=== PATIENT | female | born 1960 | race Hispanic/Latino ===

== ENCOUNTER 2022-12-03 10:43 | Emergency (ER) | payer OTHER, SELFPAY ==
--- NOTE | ~2022-12-03 | CT_ITS ---
EXAMINATION: CT abdomen pelvis wo con DATE: 12/03/2022 13:09 INDICATION: Right flank pain. TECHNIQUE: Computed tomography (CT) of the abdomen and pelvis was performed without intravenous contr ast. Automated exposure control and iterative reconstruction technique were employed. The dose-length product was 439.88 mGy-cm. COMPARISON: None. FINDINGS: The visualized portions of the lung bases are clear without pneumonia or pleural effusion. The heart size is normal. No pericardial effusion. There is diffuse hepatic steatosis. There are white ges of cholecystectomy. Pneumobilia is noted, likely secondary to sphincterotomy. The gallbladder. Th e spleen, pancreas, adrenal glands, and kidneys are normal. There are no dilated loops of bowel. The appendix is normal. There is an 11 mm mass with central calcification and adjacent fat stranding in t he greater omentum on the right. There is 3.2 x 2.1 x 1.4 cm soft tissue mass with central calcificat ion posterior to the liver. There is a 10 mm mass with adjacent fat stranding in the greater omentum on the left. There is mild lumbar spondylosis. IMPRESSION: 1. Mass with central calcification posterior to the liver, most likely a dropped gallstone and inflam mation/scarring. 2. Small masses in the greater omentum, which may be fat necrosis, dropped gallstones, or less likely peritoneal carcinomatosis. 3. Diffuse hepatic steatosis. Reviewed, dictated and finalized at location A. BLASTER IMPRESSION: 1. Mass with central calcification posterior to the liver, most likely a droppe d gallstone and inflammation/scarring. 2. Small masses in the greater omentum, which may be fat necrosis, dropped gall stones, or less likely peritoneal carcinomatosis. 3. Diffuse hepatic steatosis.
[2022-12-03 10:46] VITALS: BP 133/64; PULSE 88; RESP 14; TEMP 36.7; O2SAT 99
[2022-12-03] MEDS: HYDROcodone/acetaminophen (*CRX) 5-325 MG TABLET 1 TAB PO (13:02)
--- NOTE | 2022-12-03 13:04 | ED.GENADULT ---
HPI - General Adult General Chief complaint: Back Pain/Injury Stated complaint: back pain Time Seen by Provider: 12/03/22 11:25 History of Present Illness HPI narrative: 61-year-old [place]ian-speaking female presenting to the emergency department for evaluation of right back and right flank pain. Patient states yesterday she was getting out of bed when she injured her right back. Patient did take ibuprofen for pain control and states this has been helping. Patient denies any chest pain or shortness of breath. Patient denies any abdominal pain. Patient denies any hematuria. Patient denies any associate numbness or weakness. Patient denies any pain rating down her lower legs. Patient is primarily [place]ian-speaking. Family member offered to translate but the accounts adjustable clerk iPad was utilized. Related Data Home Medications Medication Instructions Recorded Confirmed alendronate 70 mg tablet mg PO 12/03/22 12/03/22 calcium carbonate 500 mg calcium mg 12/03/22 (1,250 mg) tablet cholecalciferol (vitamin D3) 25 12/03/22 mcg (1,000 unit) tablet rosuvastatin 40 mg tablet mg 12/03/22 Allergies Allergy/AdvReac Type Severity Reaction Status Date / Time No Known Allergies Allergy Verified 12/03/22 11:35 Review of Systems Review of Systems: CONSTITUTIONAL: Denies fever, chills, or sweats. EYES: Denies visual changes, redness, or discharge. ENT: Denies rhinorrhea, congestion, sore throat, or otalgia. CARDIOVASCULAR: Denies chest pain, palpitations, or edema. RESPIRATORY: Denies cough or dyspnea. GASTROINTESTINAL: Denies abdominal pain, nausea, vomiting, or diarrhea. GENITOURINARY: Denies dysuria or hematuria. SKIN: Denies rash or itching. MUSCULOSKELETAL: See HPI NEUROLOGIC: Denies headache, numbness, or weakness. Exam Narrative: APPEARANCE: Well appearing, no pain, no distress, well-nourished. HEAD: normocephalic, atraumatic. EYES: PERRLA/EOMI, conjunctivae clear. NOSE: Normal no drainage NECK: Supple. No adenopathy, no masses. RESPIRATORY: Airway patent, respirations nonlabored. Clear to auscultation bilaterally, no rales, rhonchi, wheezing. CARDIOVASCULAR: Regular rate and rhythm without murmurs rubs or gallops. ABDOMINAL: Soft, nontender, nondistended, normal bowel sounds MUSCULOSKELETAL: Moves all extremities. Reproducible right CVA tenderness to palpation. NEURO: Alert. Cranial nerves II through XII intact. Grossly intact SKIN: Warm, dry. Normal Color Course Course Emergency Course: 61-year-old female with right flank pain. Patient was provided medications for pain control including p.o. Wins[place] and Flexeril. UA is pending. Patient was having significant right CVA tenderness. Difficult to assess if patient was having any abdominal tenderness to palpation as this was causing back pain. Patient CT showed evidence of dropped gallstones. Patient is afebrile with no leukocytosis. Patient does not have an elevated lactic acid, normal transaminases and T. bili. UA shows no evidence of infection. Case was discussed with Dr. Puente for surgery and he felt that the findings of the gallstones were most likely incidental findings 5:12 PM on repeat exam patient does have reproducible back pain but no reproducible abdominal pain. Patient and son were updated on the results of the labs and imaging. All questions and concerns were addressed. Patient will be treated as musculoskeletal back pain. Patient was provided Flexeril for pain control along with some narcotic pain medication. Patient will also be encouraged to take ibuprofen for additional pain control. Vital Signs Vital signs: Vital Signs Temperature 98.0 F 12/03/22 10:46 Pulse Rate 88 12/03/22 10:46 Respiratory Rate 14 12/03/22 10:46 Blood Pressure 133/64 12/03/22 10:46 Pulse Oximetry 99 12/03/22 10:46 Temperature 97.7 F 12/03/22 17:20 Pulse Rate 73 12/03/22 17:20 Respiratory Rate 16 12/03/22 17:20 Blood Pressure 109/58 L
[2022-12-03] MEDS: CYCLOBENZAPRINE HCL 10 MG TABLET PO (13:25)
[2022-12-03 14:22] LABS: Basophils Percent Auto 0.5 % (0.2-1.2); Eosinophils Absolute Auto 0.2 K/mm3 (0-0.3); Eosinophils Percent Auto 2.9 % (0-4.4); Hematocrit 37.5 % (37.0-47.0); Hemoglobin 12.3 g/dL (12.0-15.0); Immature Granulocyte Absolute 0.02 K/mm3 (0.00-0.031); Immature Granulocyte Percent A 0.3 % (0-0.5); Lymphocytes Absolute Auto 1.98 K/mm3 (0.9-3.2); Lymphocytes Percent Auto 24.9 % (18.3-44.2); Mean Corpuscular HGB Conc 32.8 g/dl (32-36); Mean Corpuscular Hemoglobin 26.6 pg (26-34); Mean Corpuscular Volume 81.2 fl (80-100); Mean Platelet Volume 8.8 fl (7.4-10.4); Monocytes Absolute Auto 0.6 K/mm3 (0.1-0.6); Monocytes Percent Auto 6.9 % (2.6-8.5); Neutrophils Absolute Auto 5.1 K/mm3 (1.3-6.7); Neutrophils Percent Auto 64.5 % (45.5-73.1); Platelet Count Result 287 k/mm3 (150-375); Red Blood Count 4.62 M/mm3 (4.2-5.4); Red Cell Distribution Width 13.7 % (11.5-14.5)
[2022-12-03 14:24] LABS: Appearance Urine Clear (Clear); Bacteria Urine None Seen /hpf; Bilirubin Urine Negative (Negative); Blood Urine Negative (Negative); Color Urine Dark Yellow (Yellow); Glucose Urine UA Negative (Negative); Ketones Urine Trace mg/dL (Negative); Leukocyte Esterase Ur Trace LEU/UL (Negative); Need Manual Microscopic Reviewed; Nitrate Urine Negative (Negative); Non Pathogenic Casts 0-2; Protein Urine Trace mg/dL (Negative); Specific Grav Ur 1.026 (1.001-1.035); Squamous Epithelial Cell Urine None seen /hpf (Few); WBC Urine 0-5 /hpf
[2022-12-03 14:31] LABS: Add Urine Microscopic? YES
[2022-12-03 16:00] LABS: Alanine Aminotransferase 26 U/L (6-35); Albumin Level 4.8 g/dL (3.5-5.1); Alkaline Phosphatase 104 U/L (38-126); Anion Gap 9 mmol/L (8-16); Aspartate Amino Transferase 34 U/L (14-36); Bilirubin,Total 0.6 mg/dL (0.2-1.3); Blood Urea Nitrogen 16 mg/dL (7-17); Calcium 9.2 mg/dL (8.4-10.2); Carbon Dioxide 21 mmol/L (22-30); Chloride 111 mmol/L (98-107); Estimated CRCL calculation 65 ml/min; Estimated Glomerular Filt Rate > 60; Glucose 100 mg/dL (65-110); Potassium 4.1 mmol/L (3.4-5.0); Sodium 141 mmol/L (137-145)
[2022-12-03 17:20] VITALS: BP 109/58; PULSE 73; RESP 16; TEMP 36.5; O2SAT 100
== END 2022-12-03 17:40 | disposition home or self-care (01) ==
PROVIDERS: Emergency Provider Emergency Medicine
DX: M54.9 Dorsalgia, unspecified (principal)
CPT/HCPCS: 36415; 74176; 80053; 81001; 83605; 85025; 99284; A9270